=== PATIENT | male | born 1950 | race Caucasian/White ===

== ENCOUNTER → 2016-09-29 | Day surgery (SDC) | payer MEDICARE, OTHER ==
[~2016-09-29] VITALS: Ht 172.7 cm; Wt 68.0 kg
[~2016-09-29] MED LIST: ASPIRIN CHEWABL81 MG PO; EFFER-K 20 MEQ20 MEQ PO; METOPROLOL TART25 MG PO; NORVASC 5 MG TAB5 MG PO; PERCOCET 10-321 EACH PO; PLAVIX 75 MG TA75 MG PO; PRAVASTATIN SOD80 MG PO
[2016-09-29 08:31] LABS: HEMOGLOBIN 14.2 gm/dl (14.0-17.5); RED BLOOD COUNT 5.06 M/UL (4.20-5.50); WHITE BLOOD COUNT 8.1 K/UL (4.5-11.0)
[2016-09-29 08:44] LABS: BUN/CREATININE RATIO 32 (0-10)
== END | disposition home or self-care (01) ==
LOC: OR 09-26 16:30
PROVIDERS: Orthopaedic Surgery
DX: S42.022A Displaced fracture of shaft of left clavicle, initial encounter for closed fracture (principal); I25.10 Atherosclerotic heart disease of native coronary artery without angina pectoris; I25.2 Old myocardial infarction; I10 Essential (primary) hypertension; G89.29 Other chronic pain; M54.9 Dorsalgia, unspecified; M19.90 Unspecified osteoarthritis, unspecified site; F41.9 Anxiety disorder, unspecified; E78.5 Hyperlipidemia, unspecified; F17.220 Nicotine dependence, chewing tobacco, uncomplicated; Z88.0 Allergy status to penicillin; Z79.02 Long term (current) use of antithrombotics/antiplatelets; Z79.82 Long term (current) use of aspirin; Z79.899 Other long term (current) drug therapy; Z85.819 Personal history of malignant neoplasm of unspecified site of lip, oral cavity, and pharynx; Z95.5 Presence of coronary angioplasty implant and graft; W05.1XXA Fall from non-moving nonmotorized scooter, initial encounter
CPT/HCPCS: 36415; 80048; 85027; 93005; J7120

== ENCOUNTER 2020-04-05 18:06 | Emergency (ER) | payer MEDICARE ==
[~2020-04-05 18:06] MED LIST changes: +ASPIR 8181 MG PO; +ISOSORBIDE MONO30 MG PO; +NITROGLYCERIN0.4 MG SL; +NITROSTAT0.4 MG SL
[2020-04-05 19:19] LABS: HEMOGLOBIN 15.6 gm/dl (14.0-17.5); RED BLOOD COUNT 5.59 M/UL (4.20-5.50); WHITE BLOOD COUNT 8.9 K/UL (4.5-11.0)
[2020-04-05 19:40] LABS: BUN/CREATININE RATIO 19 (0-10)
[2020-04-05] MEDS ORDERED: VISTARIL 50 MG50 MG PO (19:58)
== END 2020-04-05 20:16 | disposition home or self-care (01) ==
LOC: ER1 18:06
PROVIDERS: Preventive Medicine Occupational Medicine
DX: F41.9 Anxiety disorder, unspecified (principal); I25.10 Atherosclerotic heart disease of native coronary artery without angina pectoris
CPT/HCPCS: 71045; 80053; 80307; 81001; 85025; 85652; 87086; 99283; Q0177

== ENCOUNTER → 2020-06-01 | Outpatient (CLI) | payer MEDICARE ==
[~2020-06-01] MED LIST changes: +VISTARIL 50 MG50 MG PO
== END ==
LOC: EMI 13:00
DX: M51.36 Other intervertebral disc degeneration, lumbar region (principal); M47.816 Spondylosis without myelopathy or radiculopathy, lumbar region; I71.4 Abdominal aortic aneurysm, without rupture; Z79.51 Long term (current) use of inhaled steroids; Z79.899 Other long term (current) drug therapy; Z88.0 Allergy status to penicillin
CPT/HCPCS: 72148

== ENCOUNTER → 2021-06-03 | Outpatient (CLI) | payer MEDICARE ==
[2021-06-03 16:30] LABS: BUN/CREATININE RATIO 13 (0-10)
== END ==
LOC: LAB 15:11
PROVIDERS: Emergency Medicine
DX: I10 Essential (primary) hypertension (principal)
CPT/HCPCS: 80053